=== PATIENT | male | born 1940 | race Caucasian/White ===

== ENCOUNTER 2020-12-07 12:17 | Inpatient (IN) | payer MEDICARE ==
[~2020-12-07] VITALS: Ht 188 cm; Wt 100.2 kg
[2020-12-07] VITALS (7 sets, daily range): BP systolic 99–112; BP diastolic 61–75
[2020-12-07] MEDS ORDERED: FUROSEMIDE INJ 10 MG/ML 2 ML VIAL IV ONE ×2 (12:30→12:45)
[2020-12-07] MEDS ORDERED: METHYLPREDNISOLONE SOD SUCC 125 MG/2ML VIAL IV ONE (12:30)
[2020-12-07] MEDS ORDERED: MAGNESIUM SULF 1GRAM/DEXTROSE 100 ML IV ONE (12:30)
[2020-12-07] MEDS ORDERED: ALBUTEROL/IPRATROPIUM 3 ML NEB NEB ONE (12:30)
[2020-12-07 12:41] LABS: BASOPHILS # (AUTO) 0.1 (0.0-0.1); BASOPHILS % 0.7 % (0.0-1.0); EOSINOPHILS # (AUTO) 0.3 (0.0-0.4); EOSINOPHILS % 2.2 % (0.0-6.0); HEMOGLOBIN 14.7 g/dL (14.0-18.0); LYMPHOCYTES # (AUTO) 2.5 (1.0-3.2); LYMPHOCYTES % 20.3 % (18.0-39.1); MEAN CORPUSCULAR HEMOGLOBIN 30.5 pg (28-32); MEAN CORPUSCULAR HGB CONC 30.6 g/dL (31-35); MEAN CORPUSCULAR VOLUME 99.6 fL (81-99); MONOCYTES % 7.9 % (4.4-11.3); NEUTROPHILS # (AUTO) 8.3 (2.1-6.9); NEUTROPHILS % 66.8 % (38.7-80.0); PLATELET COUNT 303 x10e3/uL (140-360); RED BLOOD COUNT 4.82 x10e6/uL (4.3-5.7)
[2020-12-07] MEDS ORDERED: DILTIAZEM HCL 5 MG/ML 5 ML VIAL IV ONE (12:45)
[2020-12-07] MEDS ORDERED: NITROGLYCERIN/D5W 200 MCG/ML 250 ML IV ONE (12:45)
[2020-12-07 12:55] LABS: INR 1.08; PARTIAL THROMBOPLASTIN TIME 27.6 seconds (23.8-35.5); PROTHROMBIN TIME 14.2 seconds (11.9-14.5)
[2020-12-07 12:58] LABS: ALBUMIN 2.8 g/dL (3.5-5.0); ALBUMIN/GLOBULIN RATIO 0.6 (0.8-2.0); ANION GAP 21.1 mmol/L (8-16); CALCIUM 9.3 mg/dL (8.4-10.2); CREATININE, SERUM 1.06 mg/dL (0.72-1.25); POTASSIUM 4.1 mmol/L (3.5-5.1)
[2020-12-07 13:14] LABS: ABG HCO3 22 mmol/L (22-26); ABG PCO2 45 mmHg (35-45); ABG PH 7.28 (7.35-7.45); ABG PO2 81 mmHg (80-105); ABG TCO2 23
[2020-12-07 13:16] LABS: ABG HCO3 20 mmol/L (22-26); ABG PCO2 61 mmHg (35-45); ABG PH 7.13 (7.35-7.45); ABG PO2 79 mmHg (80-105); ABG TCO2 22
[2020-12-07] MEDS: CEFEPIME 1 GM in SODIUM CHLORIDE 0.9% 50ML 50 ML IV SCH (13:21)
[2020-12-07] MEDS ORDERED: ASPIRIN 81 MG CHEW TAB PO ONE (14:00)
[2020-12-07] MEDS ORDERED: VENTOLIN HFA18 GM INH (14:03)
[2020-12-07] MEDS ORDERED: AMLODIPINE BESY10 MG PO (14:03)
[2020-12-07] MEDS ORDERED: ATENOLOL50 MG PO (14:04)
[2020-12-07] MEDS ORDERED: GLIPIZIDE ER5 MG PO (14:05)
[2020-12-07] MEDS ORDERED: LISINOPRIL2.5 MG PO (14:06)
[2020-12-07] MEDS ORDERED: ZESTRIL20 MG PO (14:07)
[2020-12-07] MEDS ORDERED: MELOXICAM7.5 MG PO (14:07)
[2020-12-07] MEDS ORDERED: MULTI-VITAMIN1 EACH PO (14:08)
[2020-12-07] MEDS ORDERED: STOOL SOFTENER1 EAC2 (14:09)
[2020-12-07] MEDS ORDERED: ACTOS15 MG PO (14:09)
[2020-12-07] MEDS ORDERED: GLYCOTROL CAPS1 EACH PO (14:13)
[2020-12-07 14:29] LABS: CREATINE KINASE MB 11.7 ng/mL (0-5.0)
[2020-12-07] MEDS ORDERED: ENOXAPARIN SODIUM INJ 100 MG/ML SYR SC NR (14:35)
[2020-12-07] MEDS ORDERED: ONDANSETRON HCL INJ 2MG/ML 2ML 2 MG/ML VIAL IV PRN (16:15)
[2020-12-07] MEDS ORDERED: DEXTROSE 50% SYRINGE 50 ML IV PRN (16:15)
[2020-12-07] MEDS: INSULIN REGULAR, HUMAN 100 UNIT/1 ML SQ SCH ×2 (16:22→21:20)
[2020-12-07] MEDS ORDERED: FUROSEMIDE INJ 10 MG/ML 4 ML VIAL IV ONE (16:30)
[2020-12-07 18:23] LABS: CREATINE KINASE MB 58.7 ng/mL (0-5.0)
[2020-12-07] MEDS ORDERED: CLOPIDOGREL BISULFATE 75 MG TAB PO NR (18:45)
[2020-12-07] MEDS ORDERED: ZOLPIDEM TARTRATE 5 MG TAB PO PRN (21:00)
[2020-12-07] MEDS: FUROSEMIDE INJ 10 MG/ML 4 ML VIAL IV SCH (21:46)
[2020-12-08] VITALS (20 sets, daily range): BP systolic 0–118; BP diastolic 61–83
[2020-12-08 00:44] LABS: CREATINE KINASE MB 153.9 ng/mL (0-5.0)
[2020-12-08] MEDS: NITROGLYCERIN 0.4 MG SUBL SL PRN ×2 (02:33→02:45)
[2020-12-08 05:08] LABS: BASOPHILS % 0.2 % (0.0-1.0); HEMOGLOBIN 13.8 g/dL (14.0-18.0); LYMPHOCYTES # (AUTO) 0.6 (1.0-3.2); LYMPHOCYTES % 3.1 % (18.0-39.1); MEAN CORPUSCULAR HEMOGLOBIN 30.7 pg (28-32); MEAN CORPUSCULAR HGB CONC 32.1 g/dL (31-35); MEAN CORPUSCULAR VOLUME 95.6 fL (81-99); MONOCYTES # (AUTO) 1.5 (0.2-0.8); MONOCYTES % 8.2 % (4.4-11.3); NEUTROPHILS # (AUTO) 16.5 (2.1-6.9); NEUTROPHILS % 87.6 % (38.7-80.0); PLATELET COUNT 278 x10e3/uL (140-360); RED CELL DISTRIBUTION WIDTH 13.9 % (11.7-14.4)
[2020-12-08 05:27] LABS: ANION GAP 18.9 mmol/L (8-16); CALCIUM 8.9 mg/dL (8.4-10.2); CREATININE, SERUM 1.23 mg/dL (0.72-1.25); POTASSIUM 3.9 mmol/L (3.5-5.1)
[2020-12-08] MEDS: FUROSEMIDE INJ 10 MG/ML 4 ML VIAL IV SCH (05:59)
[2020-12-08] MEDS ORDERED: ENOXAPARIN SOD INJ 60 MG/0.6 ML SYR SC SCH (07:00)
[2020-12-08 07:12] LABS: CLARITY,URINE SL CLOUDY (CLEAR); COLOR,URINE YELLOW (YELLOW); KETONES,URINE NEGATIVE (NEGATIVE); LEUKOCYTE ESTERASE ,URINE TRACE (NEGATIVE); NITRITE,URINE NEGATIVE (NEGATIVE); PROTEIN,URINE DIPSTICK NEGATIVE (NEGATIVE); URINE UROBILINOGEN 0.2 mg/dL (0.2 - 1)
[2020-12-08 07:27] LABS: EPITHELIAL CELLS,URINE MODERATE /LPF
[2020-12-08 07:29] LABS: BACTERIA,URINE MODERATE /HPF
[2020-12-08] MEDS: CEFEPIME 1 GM in SODIUM CHLORIDE 0.9% 50ML 50 ML IV SCH (08:31)
[2020-12-08] MEDS: INSULIN REGULAR, HUMAN 100 UNIT/1 ML SQ SCH ×3 (08:32→17:42)
[2020-12-08] MEDS ORDERED: ASPIRIN 325 MG TAB PO SCH (09:00)
[2020-12-08] MEDS ORDERED: LEVALBUTEROL HCL SOLN NEBU 1.25 MG/3 ML NEB INH PRN (10:15)
[2020-12-08] MEDS ORDERED: VERAPAMIL HCL 2.5 MG/ML 2 ML VIAL ONE (10:36)
[2020-12-08] MEDS ORDERED: MIDAZOLAM HCL 2 MG/2 ML VIAL ONE (10:36)
[2020-12-08] MEDS ORDERED: FENTANYL CITRATE/PF 100MCG/2 ML INJ ONE (10:37)
[2020-12-08] MEDS ORDERED: LIDOCAINE HCL 2% LOCAL 20 ML VIAL ONE (10:37)
[2020-12-08] MEDS ORDERED: SODIUM CHLORIDE 0.9% 1000ML 1,000 ML ONE (10:38)
[2020-12-08] MEDS ORDERED: IOPAMIDOL 370 MG/ML 200 ML INFUS..BTL INJ ONE (10:38)
[2020-12-08] MEDS ORDERED: HEPARIN SOD/SOD CHLORIDE 2,000 ML ONE (10:38)
[2020-12-08] MEDS ORDERED: FAMOTIDINE 20 MG/2 ML VIAL IV ONE (11:03)
[2020-12-08] MEDS ORDERED: DIPHENHYDRAMINE HCL INJ 50 MG/ML VIAL ONE (11:03)
[2020-12-08] MEDS ORDERED: METHYLPREDNISOLONE SOD SUCC 125 MG/2ML VIAL ONE (11:03)
[2020-12-08] MEDS ORDERED: SODIUM CHLORIDE 0.9% 0 ML ONE (11:10)
[2020-12-08] MEDS ORDERED: PHENYLEPHRINE HCL 1% 10 MG/ML VIAL ONE (11:10)
[2020-12-08] MEDS ORDERED: HEPARIN SOD/SOD CHLORIDE 1,000 ML ONE (11:11)
[2020-12-08] MEDS ORDERED: FUROSEMIDE INJ 10 MG/ML 4 ML VIAL ONE (11:31)
[2020-12-08] MEDS ORDERED: SODIUM CHLORIDE 0.9% 500ML 500 ML ONE (12:54)
[2020-12-08] MEDS ORDERED: IPRATROPIUM BROMIDE 0.02% 2.5 ML NEB NEB SCH (13:00)
[2020-12-08] MEDS ORDERED: HEPARIN 25,000 UNIT 1,100 UNIT in DEXTROSE 5% 250ML 250 ML IV SCH (17:00)
[2020-12-08 17:59] LABS: INR 1.18; PROTHROMBIN TIME 15.3 seconds (11.9-14.5)
[2020-12-08] MEDS ORDERED: HEPARIN 25,000 UNIT 1,000 UNIT in DEXTROSE 5% 250ML 250 ML IV SCH ×2 (18:45→19:00)
[2020-12-08] MEDS ORDERED: FUROSEMIDE INJ 10 MG/ML 4 ML VIAL IV SCH (20:00)
== END 2020-12-08 19:22 | disposition short-term general hospital (02) | DRG 270 ==
LOC: ER 12:47 → ERHOLD 14:16 → ICU 15:24
PROVIDERS: ADMIT Internal Medicine; ATTEND Internal Medicine
PROC: 4A023N7 Measurement of Cardiac Sampling and Pressure, Left Heart, Percutaneous Approach (ICD-10-PCS; principal; 2020-12-07)
PROC: 5A02210 Assistance with Cardiac Output using Balloon Pump, Continuous (ICD-10-PCS; 2020-12-07)
PROC: B2111ZZ Fluoroscopy of Multiple Coronary Arteries using Low Osmolar Contrast (ICD-10-PCS; 2020-12-07)
PROC: B2151ZZ Fluoroscopy of Left Heart using Low Osmolar Contrast (ICD-10-PCS; 2020-12-07)
DX: I21.4 Non-ST elevation (NSTEMI) myocardial infarction (principal); J15.9 Unspecified bacterial pneumonia; I50.21 Acute systolic (congestive) heart failure; J96.01 Acute respiratory failure with hypoxia; J44.0 Chronic obstructive pulmonary disease with (acute) lower respiratory infection; N17.9 Acute kidney failure, unspecified; I11.0 Hypertensive heart disease with heart failure; E66.01 Morbid (severe) obesity due to excess calories; Z68.28 Body mass index [BMI] 28.0-28.9, adult
CPT/HCPCS: 33970; 36415; 51700; 71045; 76937; 80048; 80053; 81001; 82550; 82553; 82805; 82948; 83605; 83880; 84484; 85025; 85610; 85730; 87040; 87086; 93005; 93306; 93458; 94640; 94660; 96372; 99284; C1766; C1769; C1887; J0692; J1200; J1650; J1817; J1940; J2001; J2250; J2370; J2930; J3010; J7030; J7040; J7050; Q9967; U0002